=== PATIENT | female | born 1995 | race Two or more races ===

== ENCOUNTER 2019-07-26 15:13 | Emergency (ER) | payer OTHER ==
[~2019-07-26] VITALS: Ht 157.5 cm; Wt 71.2 kg
[2019-07-26] MEDS ORDERED: OBSTETRIX DHA1 EACH (15:34)
== END 2019-07-26 22:01 | disposition home or self-care (01) ==
LOC: ER 15:13
DX: O21.0 Mild hyperemesis gravidarum (principal); Z34.01 Encounter for supervision of normal first pregnancy, first trimester

== ENCOUNTER 2019-08-09 15:13 | Emergency (ER) | payer OTHER ==
[~2019-08-09] VITALS: Ht 157.5 cm; Wt 65.8 kg
[~2019-08-09 15:13] MED LIST: OBSTETRIX DHA1 EACH
== END 2019-08-09 23:47 | disposition home or self-care (01) ==
LOC: EMR PED 15:13 → ER 15:39
DX: O21.0 Mild hyperemesis gravidarum (principal); Z34.01 Encounter for supervision of normal first pregnancy, first trimester

== ENCOUNTER 2019-08-28 21:37 | Emergency (ER) | payer OTHER ==
[~2019-08-28] VITALS: Ht 154.9 cm; Wt 69.9 kg
[2019-08-29] MEDS ORDERED: FLONASE16 GM NASAL (03:29)
[2019-08-29] MEDS ORDERED: TUSSIN100 MG/5 M PO (03:29)
== END 2019-08-29 03:39 | disposition home or self-care (01) ==
LOC: ER 21:37
DX: O26.891 Other specified pregnancy related conditions, first trimester (principal); J06.9 Acute upper respiratory infection, unspecified; Z34.01 Encounter for supervision of normal first pregnancy, first trimester

== ENCOUNTER 2020-03-19 19:00 | Inpatient (IN) | payer OTHER ==
[~2020-03-19] VITALS: Ht 157.5 cm; Wt 74.4 kg
[~2020-03-19 19:00] MED LIST changes: +FLONASE16 GM NASAL; +TUSSIN100 MG/5 M PO
== END 2020-03-23 12:56 | disposition home or self-care (01) | DRG 788 ==
LOC: LDR 19:00 → OB/GYN 03-20 18:59
PROVIDERS: ADMIT Obstetrics & Gynecology; ATTEND Obstetrics & Gynecology
PROC: 3E0P7VZ Introduction of Hormone into Female Reproductive, Via Natural or Artificial Opening (ICD-10-PCS; 2020-03-19)
PROC: 4A1HXCZ Monitoring of Products of Conception, Cardiac Rate, External Approach (ICD-10-PCS; 2020-03-19)
PROC: 3E033VJ Introduction of Other Hormone into Peripheral Vein, Percutaneous Approach (ICD-10-PCS; 2020-03-20)
PROC: 10D00Z1 Extraction of Products of Conception, Low, Open Approach (ICD-10-PCS; principal; 2020-03-20 16:00)
DX: O61.0 Failed medical induction of labor (principal); O62.1 Secondary uterine inertia; Z3A.40 40 weeks gestation of pregnancy; Z37.0 Single live birth

== ENCOUNTER 2022-07-20 11:30 | Emergency (ER) | payer OTHER ==
[~2022-07-20] VITALS: Ht 157.5 cm; Wt 58.5 kg
[2022-07-20] MEDS ORDERED: ONDANSETRON ODT8 MG PO (17:29)
== END 2022-07-20 17:48 | disposition home or self-care (01) ==
LOC: ER 11:30
DX: O21.0 Mild hyperemesis gravidarum (principal); Z3A.01 Less than 8 weeks gestation of pregnancy; Z20.822 Contact with and (suspected) exposure to COVID-19

== ENCOUNTER 2022-07-31 07:06 | Emergency (ER) | payer OTHER ==
[~2022-07-31] VITALS: Ht 157.5 cm; Wt 57.6 kg
[~2022-07-31 07:06] MED LIST changes: +ONDANSETRON ODT8 MG PO
== END 2022-07-31 10:00 | disposition home or self-care (01) ==
LOC: ER 07:06
DX: O21.8 Other vomiting complicating pregnancy (principal); Z3A.01 Less than 8 weeks gestation of pregnancy

== ENCOUNTER 2022-08-02 08:22 | Emergency (ER) | payer OTHER ==
[~2022-08-02] VITALS: Ht 157.5 cm; Wt 57.6 kg
== END 2022-08-02 17:05 | disposition home or self-care (01) ==
LOC: ER 08:22
DX: O21.0 Mild hyperemesis gravidarum (principal); Z3A.08 8 weeks gestation of pregnancy

== ENCOUNTER 2022-09-06 10:32 | Outpatient (CLI) | payer OTHER | END 2022-09-06 11:55 | disposition home or self-care (01) | LOC: PRENATAL 10:32 | PROVIDERS: ATTEND Obstetrics & Gynecology Maternal & Fetal Medicine | DX: O36.80X0 Pregnancy with inconclusive fetal viability, not applicable or unspecified (principal); Z36 Encounter for antenatal screening of mother; Z14.8 Genetic carrier of other disease; Z3A.14 14 weeks gestation of pregnancy ==

== ENCOUNTER 2022-10-28 13:44 | Outpatient (CLI) | payer OTHER | END 2022-10-28 14:30 | disposition home or self-care (01) | LOC: PRENATAL 13:44 | PROVIDERS: ATTEND Obstetrics & Gynecology Maternal & Fetal Medicine | DX: O35.9XX0 Maternal care for (suspected) fetal abnormality and damage, unspecified, not applicable or unspecified (principal); O35.3XX0 Maternal care for (suspected) damage to fetus from viral disease in mother, not applicable or unspecified; Z3A.21 21 weeks gestation of pregnancy ==

== ENCOUNTER 2022-11-27 13:28 | Emergency (ER) | payer OTHER ==
[~2022-11-27] VITALS: Ht 157.5 cm; Wt 61.2 kg
== END 2022-11-27 17:34 | disposition home or self-care (01) ==
LOC: ER 13:28
DX: O26.892 Other specified pregnancy related conditions, second trimester (principal); O71.89 Other specified obstetric trauma; Z3A.24 24 weeks gestation of pregnancy; V49.9XXA Car occupant (driver) (passenger) injured in unspecified traffic accident, initial encounter; Y93.9 Activity, unspecified; Y92.413 State road as the place of occurrence of the external cause; Y99.9 Unspecified external cause status

== ENCOUNTER 2023-03-06 12:06 | Inpatient (IN) | payer OTHER ==
[~2023-03-06] VITALS: Ht 157.5 cm; Wt 2.7 kg
[2023-03-10] MEDS ORDERED: PRENA1 TRUE CO1 EACH PO (09:34)
[2023-03-12] MEDS ORDERED: IBUPROFEN800 MG PO (09:44)
== END 2023-03-12 16:31 | disposition home or self-care (01) | DRG 788 ==
LOC: OB/GYN 03-10 07:00 → O/R 03-10 07:48 → OB/GYN 03-10 11:04
PROVIDERS: ADMIT Obstetrics & Gynecology; ATTEND Obstetrics & Gynecology
PROC: 4A1HXCZ Monitoring of Products of Conception, Cardiac Rate, External Approach (ICD-10-PCS; 2023-03-10)
PROC: 10D00Z1 Extraction of Products of Conception, Low, Open Approach (ICD-10-PCS; principal; 2023-03-10 09:15)
DX: O34.211 Maternal care for low transverse scar from previous cesarean delivery (principal); Z3A.39 39 weeks gestation of pregnancy; Z37.0 Single live birth; Z20.822 Contact with and (suspected) exposure to COVID-19

== ENCOUNTER → 2024-04-19 11:57 | Outpatient (CLI) | payer OTHER ==
[~2024-04-19 11:57] MED LIST changes: +CEPHALEXIN500 MG PO; +IBUPROFEN800 MG PO; +PRENA1 TRUE CO1 EACH PO
== END | disposition home or self-care (01) ==
LOC: PRENATAL 11:57
PROVIDERS: ATTEND Obstetrics & Gynecology Maternal & Fetal Medicine
DX: O35.9XX0 Maternal care for (suspected) fetal abnormality and damage, unspecified, not applicable or unspecified (principal); O35.3XX0 Maternal care for (suspected) damage to fetus from viral disease in mother, not applicable or unspecified; O44.02 Complete placenta previa NOS or without hemorrhage, second trimester; O34.219 Maternal care for unspecified type scar from previous cesarean delivery; Z3A.20 20 weeks gestation of pregnancy

== ENCOUNTER 2024-04-21 21:31 | Emergency (ER) | payer OTHER ==
[~2024-04-21] VITALS: Ht 157.5 cm; Wt 59.9 kg
[~2024-04-21 21:31] MED LIST changes: -CEPHALEXIN500 MG PO
[2024-04-22] MEDS ORDERED: 0.9 % SODIUM CHLORIDE 1,000 ML IV SCH
[2024-04-22 00:04] LABS: HEMATOCRIT 39.3 % (36.0-45.00); HEMOGLOBIN 13.3 g/dL (12.0-15.00); MEAN CELL VOLUME 87.9 fL (80.00-100.00); MEAN CORPUSCULAR HEMOGLOBIN 29.7 pg (27.00-32.0); MEAN CORPUSCULAR HGB CONC 33.8 g/dl (32.0-36.0); PLATELET COUNT 206 K/uL (150-450); RED BLOOD COUNT 4.47 M/uL (4.00-6.00); RED CELL DISTRIBUTION WIDTH 15.9 % (11.5-14.5)
[2024-04-22 00:05] LABS: URINE APPEARANCE Turbid; URINE BILIRRUBIN Negative (NEGATIVE); URINE BLOOD Negative; URINE COLOR Yellow; URINE GLUCOSE Negative (NEGATIVE); URINE LEUKOCYTE Trace; URINE NITRATE Negative; URINE PROTEIN Negative (NEGATIVE); URINE UROBILINOGEN 0.2 E.U./dl
[2024-04-22 00:09] LABS: URINE BACTERIA 1645.4 uL (0.0-1933); URINE EPITHELIAL CELLS 25.3 uL (0.0-38.8); URINE RBC 7.7 uL (0.0-20.8); URINE WBC 24.2 uL (0.0-23.2)
[2024-04-22 01:41] LABS: CALCIUM 8.6 mg/dL (8.5-10.1); CREATININE SERUM 0.46 mg/dL (0.55-1.02); GFR 160.6; POTASSIUM 3.52 mEq/L (3.5-5.1)
[2024-04-22] MEDS ORDERED: CEFTRIAXONE SODIUM 1,000 MG VIAL IV STA (04:30)
[2024-04-22] MEDS ORDERED: ACETAMINOPHEN 500 MG GEL..CAP PO STA (04:30)
[2024-04-22] MEDS ORDERED: CEPHALEXIN500 MG PO (07:20)
== END 2024-04-22 08:07 ==
LOC: ER 21:32
PROVIDERS: Emergency Medicine
DX: O23.32 Infections of other parts of urinary tract in pregnancy, second trimester (principal); N39.0 Urinary tract infection, site not specified; Z3A.20 20 weeks gestation of pregnancy

== ENCOUNTER 2024-06-21 23:45 | Outpatient (CLI) | payer OTHER ==
[~2024-06-21 23:45] MED LIST changes: +CEPHALEXIN500 MG PO
[2024-06-22 00:30] VITALS: BP 97/60
[2024-06-22] MEDS ORDERED: RINGERS SOLUTION,LACTATED 1,000 ML IV SCH (01:00)
[2024-06-22 03:16] LABS: PH,URINE 6.5 (5.0-8.0); URINE APPEARANCE Clear; URINE BILIRRUBIN Negative (NEGATIVE); URINE BLOOD Negative; URINE COLOR Yellow; URINE GLUCOSE Negative (NEGATIVE); URINE KETONE Negative (NEGATIVE); URINE LEUKOCYTE Trace; URINE NITRATE Negative; URINE PROTEIN Negative (NEGATIVE); URINE UROBILINOGEN 0.2 E.U./dl
[2024-06-22 03:19] LABS: URINE BACTERIA 1607.4 uL (0.0-1933); URINE EPITHELIAL CELLS 68.4 uL (0.0-38.8); URINE RBC 7.1 uL (0.0-20.8); URINE WBC 29.5 uL (0.0-23.2)
[2024-06-22 03:27] VITALS: BP 97/57
[2024-06-22 03:36] LABS: HEMOGLOBIN 12.6 g/dL (12.0-15.00); MEAN CELL VOLUME 91.3 fL (80.00-100.00); MEAN CORPUSCULAR HEMOGLOBIN 30.3 pg (27.00-32.0); MEAN CORPUSCULAR HGB CONC 33.2 g/dl (32.0-36.0); PLATELET COUNT 202 K/uL (150-450); RED BLOOD COUNT 4.16 M/uL (4.00-6.00); RED CELL DISTRIBUTION WIDTH 14.1 % (11.5-14.5)
[2024-06-22 07:45] VITALS: BP 90/53
[2024-06-22 10:40] VITALS: BP 90/53
== END 2024-06-22 10:40 | disposition home or self-care (01) ==
LOC: OBS/DEL 23:45
PROVIDERS: ATTEND Obstetrics & Gynecology
DX: O26.893 Other specified pregnancy related conditions, third trimester (principal); T14.8XXA Other injury of unspecified body region, initial encounter; W18.39XA Other fall on same level, initial encounter; Y93.89 Activity, other specified; Y92.018 Other place in single-family (private) house as the place of occurrence of the external cause; Z3A.29 29 weeks gestation of pregnancy

== ENCOUNTER → 2024-07-11 15:49 | Outpatient (CLI) | payer OTHER | END | disposition home or self-care (01) | LOC: PRENATAL 15:49 | PROVIDERS: ATTEND Obstetrics & Gynecology Maternal & Fetal Medicine | DX: O26.849 Uterine size-date discrepancy, unspecified trimester (principal); O36.8199 Decreased fetal movements, unspecified trimester, other fetus; O34.219 Maternal care for unspecified type scar from previous cesarean delivery; Z3A.32 32 weeks gestation of pregnancy ==

== ENCOUNTER 2024-08-19 11:32 | Inpatient (IN) | payer OTHER ==
[~2024-08-19] VITALS: Ht 157.5 cm; Wt 67.6 kg
[2024-08-19 12:25] LABS: URINE APPEARANCE Cloudy; URINE BILIRRUBIN Negative (NEGATIVE); URINE BLOOD Negative; URINE COLOR Yellow; URINE GLUCOSE Negative (NEGATIVE); URINE KETONE Trace (NEGATIVE); URINE LEUKOCYTE Trace; URINE NITRATE Negative; URINE PROTEIN 30 (NEGATIVE); URINE UROBILINOGEN 0.2 E.U./dl
[2024-08-19 12:30] LABS: URINE BACTERIA 4450.2 uL (0.0-1933); URINE RBC 2.9 uL (0.0-20.8); URINE WBC 39.8 uL (0.0-23.2)
[2024-08-19 12:35] LABS: HEMATOCRIT 41.7 % (36.0-45.00); HEMOGLOBIN 13.8 g/dL (12.0-15.00); MEAN CELL VOLUME 89.4 fL (80.00-100.00); MEAN CORPUSCULAR HEMOGLOBIN 29.6 pg (27.00-32.0); MEAN CORPUSCULAR HGB CONC 33.2 g/dl (32.0-36.0); PLATELET COUNT 209 K/uL (150-450); RED BLOOD COUNT 4.67 M/uL (4.00-6.00); RED CELL DISTRIBUTION WIDTH 13.8 % (11.5-14.5)
[2024-08-19 12:45] LABS: URINE CAST 0.45 uL (0.0-1.40)
[2024-08-19 13:02] LABS: INR 0.98; PARTIAL THROMBOPLASTIN TIME 26.1 SECONDS (22.0-34.0); PROTHROMBIN TIME 10.7 SECONDS (9.0-11.5)
[2024-08-19 13:30] LABS: ALBUMIN 2.7 gm/dL (3.4-5.0); BILIRUBIN TOTAL 0.35 mg/dL (0.3-1.2); CREATININE SERUM 0.64 mg/dL (0.55-1.02); GFR 109.71; GLOBULINA 3.8 G/DL (2.4-3.5); POTASSIUM 4.11 mEq/L (3.5-5.1); TOTAL PROTEIN 6.5 gm/dL (6.4-8.2)
[2024-08-30 09:36] VITALS: BP 104/72
[2024-08-30 10:16] LABS: RH POSITIVE
[2024-08-30] MEDS ORDERED: RINGERS SOLUTION,LACTATED 1,000 ML IV SCH (16:00)
[2024-08-30] MEDS ORDERED: MORPHINE SULFATE 4 MG/ML CARTRIDGE IV PRN (16:00)
[2024-08-30] MEDS ORDERED: OXYTOCIN 1,000 ML IV SCH (16:00)
[2024-08-30] MEDS ORDERED: ERYTHROMYCIN BASE OPHT 1GM EACH TUBE OP ONE (16:30)
[2024-08-30] MEDS ORDERED: CEFAZOLIN SODIUM 1,000 MG VIAL IV ONE (16:30)
[2024-08-30] MEDS ORDERED: OXYTOCIN 10 UNITS/ML VIAL IV ONE (16:30)
[2024-08-30] MEDS ORDERED: MORPHINE SULFATE 4 MG/ML VIAL IV ONE ×3 (16:40→18:10)
[2024-08-30] MEDS ORDERED: DOCUSATE SODIUM 100MG CAP PO SCH (17:00)
[2024-08-30] MEDS ORDERED: ONDANSETRON HCL 2 MG/ML VIAL IV ONE (17:15)
[2024-08-30] MEDS ORDERED: ACETAMINOPHEN 325 MG TABLET PO SCH (18:00)
[2024-08-30 20:20] LABS: HEMATOCRIT 40.2 % (36.0-45.00); MEAN CELL VOLUME 89.9 fL (80.00-100.00); MEAN CORPUSCULAR HEMOGLOBIN 29.1 pg (27.00-32.0); MEAN CORPUSCULAR HGB CONC 32.4 g/dl (32.0-36.0); PLATELET COUNT 179 K/uL (150-450); RED BLOOD COUNT 4.47 M/uL (4.00-6.00); RED CELL DISTRIBUTION WIDTH 13.6 % (11.5-14.5)
[2024-08-30 20:38] VITALS: BP 120/81
[2024-08-30] MEDS ORDERED: SIMETHICONE 125 MG CAPSULE PO SCH (21:00)
[2024-08-31] VITALS: BP 117/69
[2024-08-31 08:49] VITALS: BP 105/70
[2024-08-31] MEDS ORDERED: IBUprofen 800 MG TABLET PO PRN (09:00)
[2024-08-31 17:12] VITALS: BP 107/71
[2024-09-01 01:00] VITALS: BP 102/66
[2024-09-01 16:39] VITALS: BP 112/79
== END 2024-09-01 17:17 | disposition home or self-care (01) | DRG 785 ==
LOC: O/R 08-30 09:05 → OB/GYN 08-30 11:21
PROVIDERS: ADMIT Obstetrics & Gynecology; ATTEND Obstetrics & Gynecology
PROC: 0UB70ZZ Excision of Bilateral Fallopian Tubes, Open Approach (ICD-10-PCS; 2024-08-30)
PROC: 4A1HXCZ Monitoring of Products of Conception, Cardiac Rate, External Approach (ICD-10-PCS; 2024-08-30)
PROC: 10D00Z1 Extraction of Products of Conception, Low, Open Approach (ICD-10-PCS; principal; 2024-08-30 12:45)
DX: O34.211 Maternal care for low transverse scar from previous cesarean delivery (principal); Z30.2 Encounter for sterilization; Z3A.39 39 weeks gestation of pregnancy; Z37.0 Single live birth; Z20.822 Contact with and (suspected) exposure to COVID-19